=== PATIENT | male | born 1970 | race Caucasian/White ===

== ENCOUNTER 2016-10-24 17:03 | Observation (INO) | payer OTHER ==
[2016-10-24 17:19] VITALS: BMI 38.4
[2016-10-24] MEDS ORDERED: Sodium Chloride 0.9% 1,000 ML IV STA (17:24)
--- NOTE | 2016-10-24 17:30 | ED PDOC ---
Arrival/HPI - General Time Seen by Provider: 10/24/16 17:08 Historian: Patient - History of Present Illness Narrative History of Present Illness (Text): 10/24/16 17:10 A 45 year old male, whose past medical history includes Non-Insulin Dependent Diabetes and Hypertension, presents to the emergency department complaining of "not feeling well" for the past 3 days. Patient reports three days ago he woke up with a "cold, messed up feeling" in his stomach. He notes a decrease PO intake, no bowel movement and decrease urinary output (which is darker than usual) for the past 3 days. Patient has had a intermittent headache which has worsen within the fast few hours. He also developed a non productive cough about 5 hours ago. Patient says yesterday he went to work but all day he felt dizzy/lightheaded and was "felt as he was coming in and out of consciousness." Patient is feeling nausea at this time but denies any fever, vomiting or other complaints. Patient mentions last week he has an abscess to the abdomen, which his PMD performed a I&D and has tested. Fluids was positive for MRSA. Patient went to his PMD office yesterday but did not get any blood work because he did not want to stay in the office, but he was told by PMD he is dehydrated. PMD: Dr. Amezcua Time/Duration: Other (3 days ) Symptom Onset: Sudden Symptom Course: Unchanged Quality: Other Activities at Onset: Rest Context: Home Past Medical History - Provider Review Nursing Documentation Reviewed: Yes - Infectious Disease Hx of Infectious Diseases: None - Cardiac Hx Hypertension: Yes - Pulmonary Hx Respiratory Disorders: No - Neurological Hx Neurological Disorder: No - HEENT Hx HEENT Disorder: No - Renal Hx Renal Disorder: No - Endocrine/Metabolic Hx Diabetes Mellitus Type 2: Yes - Hematological/Oncological Hx Blood Disorders: No - Integumentary Hx Dermatological Disorder: No - Musculoskeletal/Rheumatological Hx Gout: Yes - Gastrointestinal Hx Gastrointestinal Disorders: No - Genitourinary/Gynecological Hx Genitourinary Disorders: No - Psychiatric Hx Psychophysiologic Disorder: No Hx Substance Use: No - Surgical History Other/Comment: spine surgery - Anesthesia Hx Anesthesia: Yes Hx Anesthesia Reactions: No Hx Malignant Hyperthermia: No Family/Social History - Physician Review Nursing Documentation Reviewed: Yes Family/Social History: Unknown Family HX Smoking Status: Current Some Days Smoker Hx Alcohol Use: Yes Hx Substance Use: No Allergies/Home Meds Allergies/Adverse Reactions: Allergies shellfish derived Allergy (Verified 04/03/16 00:20) RASH Home Medications: Home Meds Medication Instructions Recorded Confirmed GlipiZIDE [Glucotrol] 5 mg PO DAILY 12/28/15 12/28/15 MetFORMIN [glucoPHAGE] 1,000 mg PO DAILY 12/28/15 12/28/15 Metoprolol Succinate [Toprol XL] 50 mg PO DAILY 12/28/15 12/28/15 Review of Systems - Review of Systems Constitutional: Fatigue. absent: Fevers Respiratory: SOB, Cough. absent: Wheezing Cardiovascular: Chest Pain Gastrointestinal: Abdominal Pain, Nausea, Vomiting. absent: Diarrhea Genitourinary Male: Urinary Output Changes Musculoskeletal: Myalgias. absent: Back Pain Skin: absent: Rash Neurological: Headache, Dizziness. absent: Focal Weakness, Gait Changes Endocrine: absent: Polyuria Hemo/Lymphatic: absent: Easy Bleeding Physical Exam - Physical Exam Narrative Physical Exam (Text): Head: Atraumatic. Normocephalic. Eyes: PERRL. EOMI. Conjunctivae are not pale. No injection. ENT: Mucous membranes are moist and intact. No drooling or exudates. Oropharynx is clear and symmetric. Neck: Supple. Full ROM. No JVD. No lymphadenopathy. No meningeal signs. Cardiovascular: Tachycardic, no pathologic murmurs. Pulmonary/Chest: No evidence of respiratory distress. Clear to auscultation bilaterally. No wheezing, rales or rhonchi. Abdominal: Soft and non-distended. Very MILD periumbilical pain, no RLQ pain, no RUQ pain, mild epigastric pain, no pulsatile masses, there is healing skin abscess to left abdominal wall with no fluctuance or drainage or blistering, no streaking. Back: No CVA tenderness. No midline tenderness. Extremities: No edema. No cyanosis. No clubbing. Full range of motion in all extremities. No calf tenderness. Skin: Skin is pale, diaphoretic. Mild erythema to left lower abdominal wall with no drainage or streaking or fluctuance. Neurological: Alert, awake, and oriented to person, place, time, and situation. Normal speech. No meningeal signs. No nuchal rigidity. Motor and sensory intact. Negative Kernig's negative Brudzinskis's sign. Psychiatric: Good eye contact. Normal interaction, affect, and behavior. 10/27/16 12:16 Vital Signs Reviewed: Yes Vital Signs Temp Pulse Resp BP Pulse Ox 10/24/16 21:44 93 H 16 114/60 95 10/24/16 19:42 98.4 F 97 H 16 134/70 98 10/24/16 17:10 98.2 F 76 18 131/85 99 Temperature: Afebrile Pulse: Tachycardic Appearance: Positive for: Uncomfortable Mental Status: Positive for: Alert and Oriented X 3 Finger Stick Blood Glucose: 144 Medical Decision Making ED Course and Treatment: 10/24/16 17:10 Impression: A 45 year old male with flu like symptoms. Differential Diagnosis include but are not limited to: Sepsis vs. Dehydration vs. Gastroenteritis vs. Viral Illness vs. Electrolyte Imbalance Plan: -- EKG -- Chest X-ray -- Labs -- Urinalysis -- Zofran and IV Fluids -- Reassess and disposition Prior Visits: Notes and results from previous visits were reviewed. The patient last presented to the emergency department on 04/03/16 for evaluation of a slight headache. Progress Notes: Patient on initial exam with minimal abdominal pain. He reports nausea exacerbated with eating, although abdomen currently soft and not distended. No melena or bleeding reported. He is smoker, diabetic, but denies family hx of cad. Initial EKG without acute st elevations, currently no chest pain but states intermittently with some nonexertional discomfort. Initial troponin unremarkable. WBC elevated, but afebrile. There is prior hx of abdominal wall abscess he had been taking Bactrim, this appears to be healing on exam. Lungs are clear on re-evaluation. No meningeal signs. On re-exam, he DENIES headache, no focal motor or sensory deficits noted. Will admit patient to telemetry observation for monitoring, hydration, serial exams. 10/24/16 18:51 Chest X-ray Impression: As read by me, shows no acute disease. 10/24/16 22:31 - Lab Interpretations Microbiology Results: Microbiology Results 10/24/16 20:30 Blood Blood Culture - Preliminary NO GROWTH AFTER 48 HOURS 10/24/16 19:45 Blood Blood Culture - Preliminary NO GROWTH AFTER 48 HOURS 10/24/16 19:44 Urine Urine Culture - Final No Growth (<1,000 CFU/ML) Lab Results: 10/24/16 17:55 10/24/16 17:55 Lab Results 10/24/16 19:44: Urine Color Yellow, Urine Appearance Clear, Urine pH 6.0, Ur Specific Leupp 1.020, Urine Protein Negative, Urine Glucose (UA) >=1000, Urine Ketones 40 H, Urine Blood Negative, Urine Nitrate Negative, Urine Bilirubin Small H, Urine Urobilinogen 2.0 H, Ur Leukocyte Esterase Negative 10/24/16 19:30: Influenza Typ A,B (EIA) Negative for flu a/b 10/24/16 17:55: Sodium 130 L, Chloride 96 L, Potassium 3.5 L, Carbon Dioxide 20 L, Anion Gap 18, BUN 8, Creatinine 1.0, Est GFR ( Amer) > 60, Est GFR ( Non-Af Amer) > 60, Random Glucose 151 H, Calcium 8.9, Total Bilirubin 1.6 H, AST 12 L, ALT 28, Alkaline Phosphatase 90, Lactate Dehydrogenase 323 L, Total Creatine Kinase 43, Troponin I < 0.01, Total Protein 7.4, Albumin 3.7, Globulin 3.8, Albumin/Globulin Ratio 1.0 L 10/24/16 17:55: pO2 35, VBG pH 7.36, VBG pCO2 37.0 L, VBG HCO3 20.9 L, VBG Total CO2 22.0, VBG O2 Sat (Calc) 72.9 H, VBG Base Excess -4.0 L, VBG Potassium 3.6, Sodium 130.0 L, Chloride 99.0, Glucose 156 H, Lactate 1.7, FiO2 21.0, Venous Blood Potassium 3.6 10/24/16 17:55: PT 12.8 H, INR 1.19 H, APTT 32.7 H 10/24/16 17:55: WBC 13.8 H D, RBC 5.35, Hgb 16.1, Hct 43.9, MCV 80.6, MCH 30.1, MCHC 37.4 H, RDW 13.1, Plt Count 237, MPV 9.4, Gran % 81.3 H, Lymph % (Auto) 10.0 L, [place] % (Auto) 5.2, Eos % (Auto) 3.4, Baso % (Auto) 0.1, Gran # 11.17 H, Lymph # 1.4, [place] # 0.7 H, Eos # 0.5, Baso # 0.02 I have reviewed the lab results: Yes - RAD Interpretation Radiology Orders: 10/24/16 18:07 CHEST PORTABLE [RAD] Stat - EKG Interpretation EKG Interpretation (Text): 10/24/16 22:10 EKG at 17:32 sinus tachycardia rate of 105, nonspecific st changes. Interpreted by ED Physician: Yes Type: 12 lead EKG - Medication Orders Current Medication Orders: Discontinued Medications Sodium Chloride (Sodium Chloride 0.9%) 1,000 mls @ 1,000 mls/hr IV .Q1H STA Stop: 10/24/16 18:23 Last Admin: 10/24/16 18:01 Dose: 1,000 mls/hr Sodium Chloride (Sodium Chloride 0.9%) 1,000 mls @ 150 mls/hr IV .Q6H40M TANYA Last Admin: 10/24/16 23:30 Dose: 150 mls/hr Insulin Human Regular (Humulin R Med) 0 units SC ACHS TANYA PRN Reason: Protocol Iohexol (Omnipaque 240 (50 Ml)) Confirm Administered Dose 50 ml .ROUTE .STK-MED ONE Stop: 10/24/16 22:56 Iohexol (Omnipaque 350 100 Ml) Confirm Administered Dose 350 mg .ROUTE .STK-MED ONE Stop: 10/25/16 02:43 Ondansetron HCl (Zofran Inj) 4 mg IVP ONCE ONE Stop: 10/24/16 17:25 Last Admin: 10/24/16 18:01 Dose: 4 mg Ondansetron HCl (Zofran Inj) 4 mg IVP Q6H PRN PRN Reason: Nausea/Vomiting Pantoprazole Sodium (Protonix Inj) 40 mg IVP DAILY TANYA Potassium Chloride (K-Dur 20 Meq Er Tab) 20 meq PO STAT STA Stop: 10/24/16 20:08 Last Admin: 10/24/16 20:35 Dose: 20 meq Trimethoprim/Sulfamethoxazole (Bactrim Ds Tab) 1 tab PO BID TANYA PRN Reason: Protocol Stop: 10/27/16 10:01 - Scribe Statement The provider has reviewed the documentation as recorded by the Maricarmen Car Provider Scribe Attestation: All medical record entries made by the Scribe were at my direction and personally dictated by me. I have reviewed the chart and agree that the record accurately reflects my personal performance of the history, physical exam, medical decision making, and the department course for this patient. I have also personally directed, reviewed, and agree with the discharge instructions and disposition. Disposition/Present on Arrival - Present on Arrival Any Indicators Present on Arrival: No History of DVT/PE: No History of Uncontrolled Diabetes: No Urinary Catheter: No History Surgical Site Infection Following: None - Disposition Have Diagnosis and Disposition been Completed?: Yes Diagnosis: Dehydration, Hyponatremia, Chest pain, Nausea, Weakness Disposition: HOSPITALIZED Disposition Time: 21:00 Patient Plan: Admission, Observation, Telemetry Condition: FAIR
[2016-10-24 18:01] LABS: ADD MANUAL DIFF? NO
[2016-10-24 18:07] LABS: BASO # 0.02 K/mm3 (0.0-2.0); BASO % 0.1 % (0.0-3.0); EOS # 0.5 (0.0-0.7); EOS % 3.4 % (1.5-5.0); GRAN # 11.17 (1.4-6.5); GRAN % 81.3 % (50.0-68.0); LYMPH # 1.4 (1.2-3.4); MEAN CELL VOLUME 80.6 fL (80.0-105.0); MEAN CORPUSCULAR HEMOGLOBIN 30.1 pg (25.0-35.0); MEAN CORPUSCULAR HGB CONC 37.4 g/dl (31.0-37.0); MEAN PLATELET VOLUME 9.4 fl (7.0-11.0); MONO # 0.7 (0.1-0.6); MONO % 5.2 % (1.0-6.0); PLATELET COUNT 237 10^3/uL (120.0-450.0); RED CELL DISTRIBUTION WIDTH 13.1 % (11.5-14.5); WHITE BLOOD COUNT 13.8 10^3/ul (4.5-11.0)
[2016-10-24 18:16] LABS: INR 1.19 (0.93-1.08); PARTIAL THROMBOPLASTIN TIME 32.7 Seconds (23.7-30.8)
[2016-10-24 18:17] LABS: ALKALINE PHOSPHATASE 90 U/L (38-133); ALT/SGPT 28 U/L (7-56); AST/SGOT 12 U/L (15-59); BILIRUBIN,TOTAL 1.6 mg/dL (0.2-1.3); BLOOD UREA NITROGEN 8 mg/dL (7-21); CALCIUM 8.9 mg/dL (8.4-10.5); CARBON DIOXIDE 20 mmol/L (21-33); CHLORIDE 96 mmol/L (98-107); GFR AFRICAN-AMERICAN > 60; GLUCOSE,RANDOM 151 mg/dL (70-110); POTASSIUM 3.5 mmol/L (3.6-5.0); SODIUM 130 mmol/L (132-148); TOTAL PROTEIN 7.4 g/dL (5.8-8.3)
[2016-10-24 18:18] LABS: VENOUS BLOOD PH 7.36 (7.32-7.43)
[2016-10-24 18:30] LABS: TROPONIN I < 0.01 ng/mL
[2016-10-24 18:42] LABS: HEMATOCRIT 43.9 % (42.0-52.0)
[2016-10-24] MEDS ORDERED: Potassium Chloride 20 mEq ER Tab PO STA (20:07)
[2016-10-24 20:24] LABS: URINE BILIRUBIN SMALL (NEGATIVE); URINE BLOOD NEGATIVE (NEGATIVE); URINE GLUCOSE (UA) >=1000 mg/dL (NEGATIVE); URINE KETONE 40 mg/dL (NEGATIVE); URINE LEUKOCYTE ESTERASE NEGATIVE Leu/uL (NEGATIVE); URINE PROTEIN NEGATIVE mg/dL (<30 mg/dL)
[2016-10-24 20:28] LABS: URINE APPEARANCE CLEAR (CLEAR); URINE COLOR YELLOW (YELLOW)
--- NOTE | 2016-10-24 22:17 | CP.PCM.HP ---
History of Present Illness - History of Present Illness History of Present Illness: CC: "Not feeling well" HPI: Pt is a 45 year old male with a PMHx of HTN, Diabetes Mellitus, Hypercholesterolemia who presents to the ED with a 3 day history of generalized weakness and malaise. Pt reports that he has had a decreased appetite and has not been able to eat or drink much. Pt is also complaining of abdominal pain that has been going on for the past 3 days. Pt reports that he had a MRSA skin infection a week and a half ago on the lateral aspect of his abdomen and went to his doctor's office where it was drained, and he was given bactrim for it. He reports that he has 2 days left of bactrim for his course of antibiotics. Pt denies sick contacts. Pt also reports that he has been getting intermittent chest discomfort. Pt reports that he has not had a bowel movement in 2 days. He reports a slight, productive cough. He also reports that he feels slight dizzy at times. Pt denies fever, chills, shortness of breath, nausea, vomiting, diarrhea, dysuria. PMD: Dr. Amezcua PMHx: HTN, Diabetes Mellitus, Hypercholesterolemia Home Medications: cannot recall home medications, reports that his metformin was replaced recent by another medication, and he takes medication for HTN and hypercholesterolemia Allergies: Shellfish Past Surgical Hx: reports he has 2 rods placed in back secondary to disc herniations Social Hx: reports smoking half a pack of cigarettes/day, denies alcohol use, denies illicit drug use Family Hx: Diabetes Mellitus, Colon Cancer (father) Present on Admission - Present on Admission Any Indicators Present on Admission: Yes History of Uncontrolled Diabetes: Yes Review of Systems - Constitutional Constitutional: Weakness. absent: Chills, Fever - EENT Eyes: absent: Blurred Vision Ears: Dizziness. absent: Decreased Hearing Nose/Mouth/Throat: Nasal Congestion. absent: Epistaxis - Cardiovascular Cardiovascular: Chest Pain. absent: Dyspnea - Respiratory Respiratory: Cough. absent: Dyspnea, Hemoptysis, Dyspnea on Exertion, Wheezing - Gastrointestinal Gastrointestinal: Abdominal Pain, Constipation. absent: Nausea, Vomiting - Genitourinary Genitourinary: absent: Dysuria - Musculoskeletal Musculoskeletal: absent: Atrophy, Back Pain - Neurological Neurological: Dizziness, Weakness. absent: Abnormal Gait, Headaches - Psychiatric Psychiatric: absent: Confusion - Hematologic/Lymphatic Hematologic: absent: Easy Bleeding Past Patient History - Infectious Disease Hx of Infectious Diseases: None - Past Social History Smoking Status: Current Some Days Smoker - CARDIAC Hx Hypertension: Yes - PULMONARY Hx Respiratory Disorders: No - NEUROLOGICAL Hx Neurological Disorder: No - HEENT Hx HEENT Problems: No - RENAL Hx Chronic Kidney Disease: No - ENDOCRINE/METABOLIC Hx Diabetes Mellitus Type 2: Yes - HEMATOLOGICAL/ONCOLOGICAL Hx Blood Disorders: No - INTEGUMENTARY Hx Dermatological Problems: No - MUSCULOSKELETAL/RHEUMATOLOGICAL Hx Gout: Yes - GASTROINTESTINAL Hx Gastrointestinal Disorders: No - GENITOURINARY/GYNECOLOGICAL Hx Genitourinary Disorders: No - PSYCHIATRIC Hx Psychophysiologic Disorder: No Hx Substance Use: No - SURGICAL HISTORY Other/Comment: spine surgery - ANESTHESIA Hx Anesthesia: Yes Hx Anesthesia Reactions: No Hx Malignant Hyperthermia: No Meds Allergies/Adverse Reactions: Allergies Allergy/AdvReac Type Severity Reaction Status Date / Time shellfish derived Allergy RASH Verified 04/03/16 00:20 Physical Exam - Constitutional Appears: Toxic, No Acute Distress, Unkempt - Head Exam Head Exam: ATRAUMATIC, NORMOCEPHALIC - Eye Exam Eye Exam: EOMI, PERRL Pupil Exam: PERRL - Neck Exam Neck exam: Positive for: Normal Inspection - Respiratory Exam Respiratory Exam: Clear to Auscultation Bilateral. absent: Rhonchi, Wheezes - Cardiovascular Exam Cardiovascular Exam: +S1, +S2. absent: Gallop, Rubs - GI/Abdominal Exam GI & Abdominal Exam: Normal Bowel Sounds, Soft, Tenderness Additional comments: RUQ tenderness - Neurological Exam Neurological exam: Alert, Oriented x3 - Psychiatric Exam Psychiatric exam: Normal Affect, Normal Mood - Skin Skin Exam: Normal Color, Warm Results - Vital Signs Recent Vital Signs: Last Vital Signs Temp 98.4 F 10/24/16 19:42 Pulse 93 H 10/24/16 21:44 Resp 16 10/24/16 21:44 BP 114/60 10/24/16 21:44 Pulse Ox 95 10/24/16 21:44 - Labs Result Diagrams: 10/24/16 17:55 10/24/16 17:55 Assessment & Plan - Assessment and Plan (Free Text) Assessment: Leukocytosis: Bacteremia from previous MRSA infection vs. bactrim reaction vs enteritis vs ketosis WBC - 13.8 Pt afebrile, HR- 93 Lactate -1.7 CXR - pending official read Procalcitonin pending ESR pending Abd/pelvis CT with IV and PO contrast pending Chest Discomfort: Troponins negative x 1 Serial cardiac enzymes pending EKG - sinus tachycardia, no ST elevations (please see full report) Repeat EKG in the am pending RUQ Tenderness: Abd/pelvis CT with IV and PO contrast pending Total bilirubin - 1.6 Diabetes Mellitus: Random glucose - 151 Urine ketones - 40 H Bicarb - 20 L Insulin sliding scale Accuchecks HgbA1c pending HTN: BP currently 116/80 Continue to monitor Hypercholesterolemia: Lipid panel pending Prophylactic Measures: DVT: SCDs, Heparin 5000 units sc q8h GI: Protonix 40 mg IV qd NS IVF 150 cc/hr Zofran 4 mg Iv q6h prn for nausea
[2016-10-24] MEDS ORDERED: Sodium Chloride 0.9% 1,000 ML IV SCH (22:30)
[2016-10-24] MEDS ORDERED: Iohexol 240 (50 ml) ONE (22:55)
[2016-10-24 23:59] VITALS: BP 117/72; PULSE 101; RESP 20; TEMP 98.2; O2SAT 96
[2016-10-25 01:19] LABS: TROPONIN I < 0.01 ng/mL
[2016-10-25] MEDS ORDERED: Iohexol 350 MG/100 ML VIAL ONE (02:42)
[2016-10-25 07:23] LABS: ADD MANUAL DIFF? NO
[2016-10-25] MEDS ORDERED: Insulin Reg-MEDIUM-Coverage SC SCH (07:30)
[2016-10-25 07:37] LABS: BASO # 0.04 K/mm3 (0.0-2.0); BASO % 0.3 % (0.0-3.0); EOS # 0.8 (0.0-0.7); GRAN # 10.05 (1.4-6.5); GRAN % 73.7 % (50.0-68.0); HEMATOCRIT 44.3 % (42.0-52.0); LYMPH % 14.9 % (22.0-35.0); MEAN CELL VOLUME 81.1 fL (80.0-105.0); MEAN CORPUSCULAR HEMOGLOBIN 29.5 pg (25.0-35.0); MEAN CORPUSCULAR HGB CONC 36.3 g/dl (31.0-37.0); MEAN PLATELET VOLUME 9.4 fl (7.0-11.0); MONO # 0.7 (0.1-0.6); MONO % 5.1 % (1.0-6.0); PLATELET COUNT 241 10^3/uL (120.0-450.0); RED CELL DISTRIBUTION WIDTH 13.4 % (11.5-14.5); WHITE BLOOD COUNT 13.6 10^3/ul (4.5-11.0)
--- NOTE | 2016-10-25 07:45 | CT ---
PROCEDURE: CT Abdomen and Pelvis without IV contrast. HISTORY: RUQ tenderness COMPARISON: None available TECHNIQUE: Contiguous axial images of the abdomen and pelvis. Oral contrast was administered. No IV contrast given. Coronal and Sagittal reformats generated. Radiation dose: Total exam DLP = 1364.09 mGy-cm. This CT exam was performed using one or more of the following dose reduction techniques: Automated exposure control, adjustment of the mA and/or kV according to patient size, and/or use of iterative reconstruction technique. FINDINGS: There is limited evaluation of the solid organs without the administration of IV contrast. LOWER THORAX: No visible consolidation, pleural effusion, pneumothorax. Partially imaged coronary artery calcifications. Partially imaged small pericardial fluid. LIVER: Hepatomegaly. Hypoattenuation of the liver compatible with hepatic steatosis. Punctate hepatic dome calcification, likely granuloma. GALLBLADDER AND BILE DUCTS: Unremarkable. PANCREAS: Unremarkable. SPLEEN: Unremarkable. ADRENALS: Unremarkable. KIDNEYS AND URETERS: No hydronephrosis or obstructing renal calculus. BLADDER: The urinary bladder appears unremarkable. REPRODUCTIVE: The prostate gland measures approximately 3.6 x 4.5 cm APPENDIX: The appendix appears within normal limits of caliber. No secondary signs of acute appendicitis. BOWEL: The stomach is nondistended. The bowel loops appear within normal limits of caliber without evidence of intestinal obstruction. PERITONEUM: No significant free fluid. No definite free air. LYMPH NODES: No bulky lymphadenopathy identified. VASCULATURE: No aortic aneurysm. BONES: Posterior lumbar fusion involving L4 through S1. Chronic degenerative changes of the spine. OTHER FINDINGS: None. IMPRESSION: Hepatomegaly. Hepatic steatosis. Partially imaged small pericardial fluid. Preliminary impression was provided by virtual radiologic.
[2016-10-25 07:56] LABS: ALKALINE PHOSPHATASE 94 U/L (38-133); ALT/SGPT 29 U/L (7-56); AST/SGOT 16 U/L (15-59); BILIRUBIN,TOTAL 1.4 mg/dL (0.2-1.3); BLOOD UREA NITROGEN 8 mg/dL (7-21); CARBON DIOXIDE 23 mmol/L (21-33); CHLORIDE 97 mmol/L (98-107); GFR AFRICAN-AMERICAN > 60; GLUCOSE,RANDOM 98 mg/dL (70-110); MAGNESIUM 2.2 mg/dL (1.7-2.2); PHOSPHOROUS 2.9 mg/dL (2.5-4.5); POTASSIUM 4.3 mmol/L (3.6-5.0); SODIUM 136 mmol/L (132-148); TOTAL PROTEIN 7.5 g/dL (5.8-8.3)
[2016-10-25 07:58] LABS: TROPONIN I 0.02 ng/mL
--- NOTE | 2016-10-25 08:08 | CP.PCM.PN ---
Subjective - Date & Time of Evaluation Date of Evaluation: 10/25/16 - Subjective Subjective: Hospitalist progress note for Dr. Galloway Objective - Vital Signs/Intake and Output Vital Signs (last 24 hours): Temp Pulse Resp BP Pulse Ox 98.2 F 101 H 20 117/72 96 10/24/16 23:35 10/24/16 23:35 10/24/16 23:35 10/24/16 23:35 10/24/16 23:35 Intake and Output: 10/25/16 10/25/16 06:59 18:59 Intake Total 420 825 Balance 420 825 - Medications Medications: Current Medications Sodium Chloride (Sodium Chloride 0.9%) 1,000 mls @ 150 mls/hr IV .Q6H40M TANYA Last Admin: 10/24/16 23:30 Dose: 150 mls/hr Insulin Human Regular (Humulin R Med) 0 units SC ACHS TANYA PRN Reason: Protocol Ondansetron HCl (Zofran Inj) 4 mg IVP Q6H PRN PRN Reason: Nausea/Vomiting Pantoprazole Sodium (Protonix Inj) 40 mg IVP DAILY [facility] Trimethoprim/Sulfamethoxazole (Bactrim Ds Tab) 1 tab PO BID TANYA PRN Reason: Protocol Stop: 10/27/16 10:01 - Labs Labs: 10/25/16 06:30 10/25/16 06:30 PT 12.8 Seconds (9.9-11.8) H 10/24/16 17:55 INR 1.19 (0.93-1.08) H 10/24/16 17:55 APTT 32.7 Seconds (23.7-30.8) H 10/24/16 17:55
--- NOTE | 2016-10-25 08:49 | RAD ---
HISTORY: chest pain, sob COMPARISON: Chest x-ray performed 04/03/16 TECHNIQUE: Chest, one view. FINDINGS: Examination limited by habitus, hypoinflation, and patient obliquity. LUNGS: Mild patchy right perihilar opacity may reflect pneumonia or atelectasis. Please note that chest x-ray has limited sensitivity for the detection of pulmonary masses. PLEURA: No significant pleural effusion identified. No definite pneumothorax . CARDIOVASCULAR: Heart size appears within normal limits. OSSEOUS STRUCTURES: Degenerative changes. VISUALIZED UPPER ABDOMEN: Unremarkable. OTHER FINDINGS: None. IMPRESSION: Mild patchy right perihilar opacity may reflect pneumonia or atelectasis. Correlate clinically. Study has been marked for PA review.
--- NOTE | 2016-10-25 09:13 | CARD ---
APPROVED REPORT EKG Measurement Heart [id number] <Conclusion> Sinus tachycardia ST T changes Lat lead, corelate clinically. Abnormal ECG
[2016-10-25 09:22] LABS: ERYTHROCYTE SEDIMENTATION RATE 9 mm/hr (0.0-15.0)
[2016-10-25] MEDS ORDERED: Tmp-Smz 800 mg-160 mg DS Tab PO SCH (10:00)
--- NOTE | 2016-10-25 11:18 | CP.PCM.DIS ---
<Misa Calvillo - Last Filed: 10/25/16 15:09> Provider - Provider Date of Admission: 10/24/16 20:59 Attending physician: Claritza Ling MD Time Spent in preparation of Discharge (in minutes): 10 Diagnosis - Discharge Diagnosis (1) Abdominal pain Status: Acute Priority: High (2) MRSA (methicillin resistant Staphylococcus aureus) infection Status: Acute (3) Weakness Status: Acute (4) Tachycardia Status: Acute (5) Abscess of skin of abdomen Status: Acute (6) Diabetes mellitus type 2 in obese Status: Chronic (7) HTN (hypertension) Status: Chronic Hospital Course - Lab Results Lab Results: Most Recent Lab Values WBC 13.6 10^3/ul (4.5-11.0) H 10/25/16 06:30 RBC 5.46 10^6/uL (3.5-6.1) 10/25/16 06:30 Hgb 16.1 gm/dL (14.0-18.0) 10/25/16 06:30 Hct 44.3 % (42.0-52.0) 10/25/16 06:30 MCV 81.1 fL (80.0-105.0) 10/25/16 06:30 MCH 29.5 pg (25.0-35.0) 10/25/16 06:30 MCHC 36.3 g/dl (31.0-37.0) 10/25/16 06:30 RDW 13.4 % (11.5-14.5) 10/25/16 06:30 Plt Count 241 10^3/uL (120.0-450.0) 10/25/16 06:30 MPV 9.4 fl (7.0-11.0) 10/25/16 06:30 Gran % 73.7 % (50.0-68.0) H 10/25/16 06:30 Lymph % (Auto) 14.9 % (22.0-35.0) L 10/25/16 06:30 [place] % (Auto) 5.1 % (1.0-6.0) 10/25/16 06:30 Eos % (Auto) 6.0 % (1.5-5.0) H 10/25/16 06:30 Baso % (Auto) 0.3 % (0.0-3.0) 10/25/16 06:30 Gran # 10.05 (1.4-6.5) H 10/25/16 06:30 Lymph # 2.0 (1.2-3.4) 10/25/16 06:30 [place] # 0.7 (0.1-0.6) H 10/25/16 06:30 Eos # 0.8 (0.0-0.7) H 10/25/16 06:30 Baso # 0.04 K/mm3 (0.0-2.0) 10/25/16 06:30 ESR 9 mm/hr (0.0-15.0) 10/25/16 06:30 PT 12.8 Seconds (9.9-11.8) H 10/24/16 17:55 INR 1.19 (0.93-1.08) H 10/24/16 17:55 APTT 32.7 Seconds (23.7-30.8) H 10/24/16 17:55 pO2 35 mm/Hg (30-55) 10/24/16 17:55 VBG pH 7.36 (7.32-7.43) 10/24/16 17:55 VBG pCO2 37.0 (40-60) L 10/24/16 17:55 VBG HCO3 20.9 mmol/l (21-28) L 10/24/16 17:55 VBG Total CO2 22.0 mmol.L (22-28) 10/24/16 17:55 VBG O2 Sat (Calc) 72.9 % (40-65) H 10/24/16 17:55 VBG Base Excess -4.0 mmol/L (0.0-2.0) L 10/24/16 17:55 VBG Potassium 3.6 mmol/L (3.6-5.2) 10/24/16 17:55 Sodium 130.0 mmol/L (132-148) L 10/24/16 17:55 Chloride 99.0 mmol/L (98-107) 10/24/16 17:55 Glucose 156 mg/dl (75-110) H 10/24/16 17:55 Lactate 1.7 mmol/L (0.7-2.1) 10/24/16 17:55 FiO2 21.0 % 10/24/16 17:55 Sodium 136 mmol/L (132-148) 10/25/16 06:30 Potassium 4.3 mmol/L (3.6-5.0) 10/25/16 06:30 Chloride 97 mmol/L (98-107) L 10/25/16 06:30 Carbon Dioxide 23 mmol/L (21-33) 10/25/16 06:30 Anion Gap 20 (10-20) 10/25/16 06:30 BUN 8 mg/dL (7-21) 10/25/16 06:30 Creatinine 1.0 mg/dL (0.5-1.4) 10/25/16 06:30 Est GFR ( Amer) > 60 10/25/16 06:30 Est GFR (Non-Af Amer) > 60 10/25/16 06:30 POC Glucose (mg/dL) 129 mg/dL (65-110) H 10/25/16 08:57 Random Glucose 98 mg/dL (70-110) 10/25/16 06:30 Hemoglobin A1c 7.0 % (4.2-6.5) H 10/25/16 06:30 Calcium 9.0 mg/dL (8.4-10.5) 10/25/16 06:30 Phosphorus 2.9 mg/dL (2.5-4.5) 10/25/16 06:30 Magnesium 2.2 mg/dL (1.7-2.2) 10/25/16 06:30 Total Bilirubin 1.4 mg/dL (0.2-1.3) H 10/25/16 06:30 AST 16 U/L (15-59) 10/25/16 06:30 ALT 29 U/L (7-56) 10/25/16 06:30 Alkaline Phosphatase 94 U/L (38-133) 10/25/16 06:30 Lactate Dehydrogenase 383 U/L (333-699) 10/25/16 06:30 Total Creatine Kinase 49 U/L (35-230) 10/25/16 06:30 Troponin I 0.02 ng/mL D 10/25/16 06:30 Total Protein 7.5 g/dL (5.8-8.3) 10/25/16 06:30 Albumin 3.8 g/dL (3.0-4.8) 10/25/16 06:30 Globulin 3.7 gm/dL 10/25/16 06:30 Albumin/Globulin Ratio 1.0 (1.1-1.8) L 10/25/16 06:30 Venous Blood Potassium 3.6 mmol/L (3.6-5.2) 10/24/16 17:55 Urine Color Yellow (YELLOW) 10/24/16 19:44 Urine Appearance Clear (CLEAR) 10/24/16 19:44 Urine pH 6.0 (4.7-8.0) 10/24/16 19:44 Ur Specific [place] 1.020 (1.005-1.035) 10/24/16 19:44 Urine Protein Negative mg/dL (<30 mg/dL) 10/24/16 19:44 Urine Glucose (UA) >=1000 mg/dL (NEGATIVE) 10/24/16 19:44 Urine Ketones 40 mg/dL (NEGATIVE) H 10/24/16 19:44 Urine Blood Negative (NEGATIVE) 10/24/16 19:44 Urine Nitrate Negative (NEGATIVE) 10/24/16 19:44 Urine Bilirubin Small (NEGATIVE) H 10/24/16 19:44 Urine Urobilinogen 2.0 E.U./dL (<1 E.U./dL) H 10/24/16 19:44 Ur Leukocyte Esterase Negative Pebbles/uL (NEGATIVE) 10/24/16 19:44 Urine Opiates Screen Negative (NEGATIVE) 10/24/16 22:23 Urine Methadone Screen Negative (NEGATIVE) 10/24/16 22:23 Ur Barbiturates Screen Negative (NEGATIVE) 10/24/16 22:23 Ur Phencyclidine Scrn Negative (NEGATIVE) 10/24/16 22:23 Ur Amphetamines Screen Negative (NEGATIVE) 10/24/16 22:23 U Benzodiazepines Scrn Negative (NEGATIVE) 10/24/16 22:23 U Oth Cocaine Metabols Negative (NEGATIVE) 10/24/16 22:23 U Cannabinoids Screen Negative (NEGATIVE) 10/24/16 22:23 Influenza Typ A,B (EIA) Negative for flu a/b (NEGATIVE) 10/24/16 19:30 - Hospital Course Hospital Course: Pt is a 45 year old obese male with a PMHx of HTN, Diabetes Mellitus, Hypercholesterolemia who presented to the ED with a 3 day history of generalized weakness, malaise, intermittent chest discomfort, abdominal pain, decreased appetite and food/water intake, as well as 2 days of constipation. Pt had a MRSA skin infection on the lateral aspect of his abdomen a week and a half ago, which was drained in his doctor's office, and for which he had been taking bactrim. Pt reports that he has not had a bowel movement in 2 days. Patient was afebrile, with normal vitals. WBC was 13.8, total bilirubin was mildy elevated at 1.6, EKG showed sinus tachycardia and lateral ST-T changes, CXR showed mild patchy R perihilar opacity: pneumonia vs. atelectasis, CT Abd and Pelvis with PO contrast showed hepatomegaly and hepatic steatosis, but no other pathology. Patient was admitted to the telemetry floor to rule out ACS and further evaluation of leukocytosis and abdominal pain. Patient's trops were negativex3, and leukocytosis and hyperbilirubinemia were trending down overnight. Per nursing, patient refused to wear a autos disassembler or SCD's or take any medications, and ripped his IV out in order to go to the bathroom. Patient was found missing from his room the morning after admit, having eloped before clinical re-evaluation by the primary team or GI evaluation was performed. For full hospital course, please refer to the chart. Discharge Exam - Additional Findings Additional findings: D/C examination was not possible d/t patient elopement. Discharge Plan - Follow Up Plan Condition: FAIR Disposition: ELOPED FROM NURSING UNIT Instructions: Chest Pain (ED), Weakness (ED) <Nilesh MORIN,Jose Cruz - Last Filed: 10/25/16 15:29> Provider - Provider Date of Admission: 10/24/16 20:59 Attending physician: Jose Cruz Galloway MD Hospital Course - Lab Results Lab Results: Most Recent Lab Values WBC 13.6 10^3/ul (4.5-11.0) H 10/25/16 06:30 RBC 5.46 10^6/uL (3.5-6.1) 10/25/16 06:30 Hgb 16.1 gm/dL (14.0-18.0) 10/25/16 06:30 Hct 44.3 % (42.0-52.0) 10/25/16 06:30 MCV 81.1 fL (80.0-105.0) 10/25/16 06:30 MCH 29.5 pg (25.0-35.0) 10/25/16 06:30 MCHC 36.3 g/dl (31.0-37.0) 10/25/16 06:30 RDW 13.4 % (11.5-14.5) 10/25/16 06:30 Plt Count 241 10^3/uL (120.0-450.0) 10/25/16 06:30 MPV 9.4 fl (7.0-11.0) 10/25/16 06:30 Gran % 73.7 % (50.0-68.0) H 10/25/16 06:30 Lymph % (Auto) 14.9 % (22.0-35.0) L 10/25/16 06:30 [place] % (Auto) 5.1 % (1.0-6.0) 10/25/16 06:30 Eos % (Auto) 6.0 % (1.5-5.0) H 10/25/16 06:30 Baso % (Auto) 0.3 % (0.0-3.0) 10/25/16 06:30 Gran # 10.05 (1.4-6.5) H 10/25/16 06:30 Lymph # 2.0 (1.2-3.4) 10/25/16 06:30 [place] # 0.7 (0.1-0.6) H 10/25/16 06:30 Eos # 0.8 (0.0-0.7) H 10/25/16 06:30 Baso # 0.04 K/mm3 (0.0-2.0) 10/25/16 06:30 ESR 9 mm/hr (0.0-15.0) 10/25/16 06:30 PT 12.8 Seconds (9.9-11.8) H 10/24/16 17:55 INR 1.19 (0.93-1.08) H 10/24/16 17:55 APTT 32.7 Seconds (23.7-30.8) H 10/24/16 17:55 pO2 35 mm/Hg (30-55) 10/24/16 17:55 VBG pH 7.36 (7.32-7.43) 10/24/16 17:55 VBG pCO2 37.0 (40-60) L 10/24/16 17:55 VBG HCO3 20.9 mmol/l (21-28) L 10/24/16 17:55 VBG Total CO2 22.0 mmol.L (22-28) 10/24/16 17:55 VBG O2 Sat (Calc) 72.9 % (40-65) H 10/24/16 17:55 VBG Base Excess -4.0 mmol/L (0.0-2.0) L 10/24/16 17:55 VBG Potassium 3.6 mmol/L (3.6-5.2) 10/24/16 17:55 Sodium 130.0 mmol/L (132-148) L 10/24/16 17:55 Chloride 99.0 mmol/L (98-107) 10/24/16 17:55 Glucose 156 mg/dl (75-110) H 10/24/16 17:55 Lactate 1.7 mmol/L (0.7-2.1) 10/24/16 17:55 FiO2 21.0 % 10/24/16 17:55 Sodium 136 mmol/L (132-148) 10/25/16 06:30 Potassium 4.3 mmol/L (3.6-5.0) 10/25/16 06:30 Chloride 97 mmol/L (98-107) L 10/25/16 06:30 Carbon Dioxide 23 mmol/L (21-33) 10/25/16 06:30 Anion Gap 20 (10-20) 10/25/16 06:30 BUN 8 mg/dL (7-21) 10/25/16 06:30 Creatinine 1.0 mg/dL (0.5-1.4) 10/25/16 06:30 Est GFR ( Amer) > 60 10/25/16 06:30 Est GFR (Non-Af Amer) > 60 10/25/16 06:30 POC Glucose (mg/dL) 129 mg/dL (65-110) H 10/25/16 08:57 Random Glucose 98 mg/dL (70-110) 10/25/16 06:30 Hemoglobin A1c 7.0 % (4.2-6.5) H 10/25/16 06:30 Calcium 9.0 mg/dL (8.4-10.5) 10/25/16 06:30 Phosphorus 2.9 mg/dL (2.5-4.5) 10/25/16 06:30 Magnesium 2.2 mg/dL (1.7-2.2) 10/25/16 06:30 Total Bilirubin 1.4 mg/dL (0.2-1.3) H 10/25/16 06:30 AST 16 U/L (15-59) 10/25/16 06:30 ALT 29 U/L (7-56) 10/25/16 06:30 Alkaline Phosphatase 94 U/L (38-133) 10/25/16 06:30 Lactate Dehydrogenase 383 U/L (333-699) 10/25/16 06:30 Total Creatine Kinase 49 U/L (35-230) 10/25/16 06:30 Troponin I 0.02 ng/mL D 10/25/16 06:30 C-React Prot High Sens > 15.00 mg/L (1.00-3.00) H 10/24/16 23:00 Total Protein 7.5 g/dL (5.8-8.3) 10/25/16 06:30 Albumin 3.8 g/dL (3.0-4.8) 10/25/16 06:30 Globulin 3.7 gm/dL 10/25/16 06:30 Albumin/Globulin Ratio 1.0 (1.1-1.8) L 10/25/16 06:30 Procalcitonin 0.14 NG/ML (0.19-0.49) L 10/24/16 23:24 Venous Blood Potassium 3.6 mmol/L (3.6-5.2) 10/24/16 17:55 Urine Color Yellow (YELLOW) 10/24/16 19:44 Urine Appearance Clear (CLEAR) 10/24/16 19:44 Urine pH 6.0 (4.7-8.0) 10/24/16 19:44 Ur Specific [place] 1.020 (1.005-1.035) 10/24/16 19:44 Urine Protein Negative mg/dL (<30 mg/dL) 10/24/16 19:44 Urine Glucose (UA) >=1000 mg/dL (NEGATIVE) 10/24/16 19:44 Urine Ketones 40 mg/dL (NEGATIVE) H 10/24/16 19:44 Urine Blood Negative (NEGATIVE) 10/24/16 19:44 Urine Nitrate Negative (NEGATIVE) 10/24/16 19:44 Urine Bilirubin Small (NEGATIVE) H 10/24/16 19:44 Urine Urobilinogen 2.0 E.U./dL (<1 E.U./dL) H 10/24/16 19:44 Ur Leukocyte Esterase Negative [place]/uL (NEGATIVE) 10/24/16 19:44 Urine Opiates Screen Negative (NEGATIVE) 10/24/16 22:23 Urine Methadone Screen Negative (NEGATIVE) 10/24/16 22:23 Ur Barbiturates Screen Negative (NEGATIVE) 10/24/16 22:23 Ur Phencyclidine Scrn Negative (NEGATIVE) 10/24/16 22:23 Ur Amphetamines Screen Negative (NEGATIVE) 10/24/16 22:23 U Benzodiazepines Scrn Negative (NEGATIVE) 10/24/16 22:23 U Oth Cocaine Metabols Negative (NEGATIVE) 10/24/16 22:23 U Cannabinoids Screen Negative (NEGATIVE) 10/24/16 22:23 Influenza Typ A,B (EIA) Negative for flu a/b (NEGATIVE) 10/24/16 19:30 Attending/Attestation - Attestation I have personally seen and examined this patient.: No I have fully participated in the care of the patient.: No I have reviewed all pertinent clinical information, including history, physical exam and plan: Yes Notes (Text): 10/25/16 15:29 Patient left the hospital without being seen by me.
--- NOTE | 2016-10-25 11:21 | CARD ---
APPROVED REPORT EKG Measurement Heart [id number] <Conclusion> Normal sinus rhythm Non Specific ST-T Changes.
== END 2016-10-25 09:30 | disposition left against medical advice (07) ==
LOC: ED 17:03 → ERH 20:59 → 2RNO 22:59
PROVIDERS: ADMIT Internal Medicine; ATTEND Internal Medicine
DX: E87.1 Hypo-osmolality and hyponatremia (principal); E86.0 Dehydration; R07.89 Other chest pain; R10.9 Unspecified abdominal pain; R00.0 Tachycardia, unspecified; E11.9 Type 2 diabetes mellitus without complications; E66.9 Obesity, unspecified; I10 Essential (primary) hypertension; K59.00 Constipation, unspecified; E78.00 Pure hypercholesterolemia, unspecified; L08.9 Local infection of the skin and subcutaneous tissue, unspecified; B95.62 Methicillin resistant Staphylococcus aureus infection as the cause of diseases classified elsewhere; F17.210 Nicotine dependence, cigarettes, uncomplicated; Z83.3 Family history of diabetes mellitus; Z80.0 Family history of malignant neoplasm of digestive organs; Z79.84 Long term (current) use of oral hypoglycemic drugs
CPT/HCPCS: 36415; 71010; 74176; 80053; 80324; 80345; 80346; 80349; 80353; 80358; 80361; 81003; 82550; 82803; 82948; 83036; 83615; 83735; 83992; 84100; 84145; 84484; 85025; 85610; 85651; 85730; 86140; 87040; 87086; 87804; 93005; 96374; 99285; G0378; J2405; J7040; Q9966; Q9967

== ENCOUNTER 2018-01-27 07:17 | Emergency (ER) | payer OTHER ==
[2018-01-27 07:18] VITALS: BMI 31.5
[2018-01-27 07:41] VITALS: RESP 18; TEMP 98
[2018-01-27 08:32] LABS: BASO # 0.03 K/mm3 (0.0-2.0); BASO % 0.2 % (0.0-3.0); EOS # 0.2 (0.0-0.7); EOS % 1.5 % (1.5-5.0); GRAN # 9.45 (1.4-6.5); GRAN % 69.1 % (50.0-68.0); HEMOGLOBIN 17.3 g/dL (14.0-18.0); LYMPH # 3.3 (1.2-3.4); LYMPH % 24.2 % (22.0-35.0); MEAN CELL VOLUME 81.2 fl (80.0-105.0); MEAN CORPUSCULAR HEMOGLOBIN 30.1 pg (25.0-35.0); MEAN PLATELET VOLUME 9.8 fl (7.0-11.0); MONO # 0.7 (0.1-0.6); RBC 5.75 10^6/uL (3.5-6.1); RED CELL DISTRIBUTION WIDTH 13.5 % (11.5-14.5); WHITE BLOOD COUNT 13.7 10^3/ul (4.5-11.0)
[2018-01-27 08:44] LABS: ALB/GLOB RATIO 1.3 (1.1-1.8); ALT/SGPT 29 U/L (7-56); AST/SGOT 21 U/L (17-59); BLOOD UREA NITROGEN 10 mg/dL (7-21); CALCIUM 9.7 mg/dL (8.4-10.5); GFR AFRICAN-AMERICAN > 60; GFR NON-AFRICAN AMERICAN > 60
--- NOTE | 2018-01-27 08:51 | ED PDOC ---
Arrival/HPI - General Chief Complaint: Back Pain Time Seen by Provider: 01/27/18 07:45 Historian: Patient - History of Present Illness Narrative History of Present Illness (Text): 01/27/18 08:48 Patient is a 47 year old male with PMH of lumbar disc herniation (s/p surgery, originally treated with PT and steroid injection), DM2, HTN, HLD, and MRSA skin infection who presents with back pain that started this morning. He describes the pain as a dull pain radiating to his stomach and groin. He states that he had similar pains about two years ago when he was first diagnosed with lumbar disc herniation. He states that he has also had trouble walking because the pain is so severe. Time/Duration: 1-3 hours Symptom Onset: Sudden Symptom Course: Intermittent, Worsening Quality: Aching, Gas Like Severity Level: 8 Activities at Onset: Rest Past Medical History - Provider Review Nursing Documentation Reviewed: Yes - Infectious Disease Hx of Infectious Diseases: None - Cardiac Hx Hypertension: Yes - Pulmonary Hx Respiratory Disorders: No - Neurological Hx Neurological Disorder: No - HEENT Hx HEENT Disorder: No - Renal Hx Renal Disorder: No - Endocrine/Metabolic Hx Diabetes Mellitus Type 2: Yes - Hematological/Oncological Hx Blood Disorders: No - Integumentary Hx Dermatological Disorder: No - Musculoskeletal/Rheumatological Hx Back Pain: Yes Hx Gout: Yes - Gastrointestinal Hx Gastrointestinal Disorders: No - Genitourinary/Gynecological Hx Genitourinary Disorders: No - Psychiatric Hx Psychophysiologic Disorder: No Hx Substance Use: No - Surgical History Other/Comment: spine surgery - Anesthesia Hx Anesthesia: Yes Hx Anesthesia Reactions: No Hx Malignant Hyperthermia: No Family/Social History - Physician Review Nursing Documentation Reviewed: Yes Family/Social History: Diabetes Smoking Status: Current Some Days Smoker Hx Alcohol Use: Yes Hx Substance Use: No Allergies/Home Meds Allergies/Adverse Reactions: Allergies shellfish derived Allergy (Verified 01/27/18 07:43) RASH Review of Systems - Review of Systems Constitutional: absent: Fevers, Night Sweats Eyes: absent: Vision Changes ENT: absent: Hearing Changes, Sore Throat, Sinus Congestion Respiratory: absent: SOB, Cough Cardiovascular: absent: Chest Pain, Palpitations, WETZEL Gastrointestinal: Abdominal Pain. absent: Stool Changes, Diarrhea, Nausea, Vomiting Genitourinary Male: absent: Dysuria, Frequency, Urinary Output Changes Musculoskeletal: Back Pain. absent: Neck Pain Skin: absent: Rash, Pruritis Neurological: absent: Headache, Dizziness Psychiatric: absent: Anxiety, Depression Physical Exam Vital Signs Reviewed: Yes Vital Signs Temp Pulse Resp BP Pulse Ox 01/27/18 10:37 98 F 79 18 110/78 97 01/27/18 10:29 98 F 79 18 110/78 97 01/27/18 07:38 98 F 85 18 121/86 98 01/27/18 07:18 98 F 85 18 121/86 98 Temperature: Afebrile Blood Pressure: Normal Pulse: Regular Respiratory Rate: Normal Appearance: Positive for: Non-Toxic, Uncomfortable Pain Distress: Moderate Mental Status: Positive for: Alert and Oriented X 3 - Systems Exam Head: Present: Atraumatic, Normocephalic Pupils: Present: PERRL Extroacular Muscles: Present: EOMI Conjunctiva: Present: Normal Mouth: Present: Moist Mucous Membranes Pharnyx: No: ERYTHEMA, EXUDATE, TONSILS ENLARGED Respiratory/Chest: Present: Clear to Auscultation. No: Accessory Muscle Use, Wheezes, Rhonchi Cardiovascular: Present: Regular Rate and Rhythm, Normal S1, S2. No: Murmurs, Rub, Gallop Abdomen: Present: Tenderness. No: Distention, Peritoneal Signs Rectal: Present: Normal Rectal Tone Back: Present: Paraspinal Tenderness. No: CVA Tenderness, Pain with Leg Raise Upper Extremity: Present: Normal Inspection. No: Cyanosis, Edema Lower Extremity: Present: Normal Inspection. No: Edema, Cyanosis, Nasir's Sign Skin: Present: Warm, Dry Psychiatric: Present: Alert, Oriented x 3 Medical Decision Making ED Course and Treatment: 01/27/18 10:37 Mr. Avalos reports his pain has improved s/p tramadol. He also reports his indigestion symptoms have improved with mylanta and protonix. Xrays of the lumbar spine showed nothing acute. We discussed the results with him and he agreed to follow up with his primary care physician if the pain worsens or if he decides he needs a new spinal surgeon referral. - Lab Interpretations Lab Results: 01/27/18 08:20 01/27/18 08:20 Lab Results 01/27/18 08:20: Sodium 140, Potassium 3.9, Chloride 102, Carbon Dioxide 26, Anion Gap 15, BUN 10, Creatinine 0.8, Est GFR ( Amer) > 60, Est GFR (Non- Af Amer) > 60, Random Glucose 148 H, Calcium 9.7, Total Bilirubin 0.7, AST 21, ALT 29, Alkaline Phosphatase 74, Total Protein 7.2, Albumin 4.0, Globulin 3.2, Albumin/Globulin Ratio 1.3 01/27/18 08:20: WBC 13.7 H, RBC 5.75, Hgb 17.3, Hct 46.7, MCV 81.2, MCH 30.1, MCHC 37.0, RDW 13.5, Plt Count 203, MPV 9.8, Gran % 69.1 H, Lymph % (Auto) 24.2 , Power % (Auto) 5.0, Eos % (Auto) 1.5, Baso % (Auto) 0.2, Gran # 9.45 H, Lymph # (Auto) 3.3, Power # (Auto) 0.7 H, Eos # (Auto) 0.2, Baso # (Auto) 0.03 I have reviewed the lab results: Yes Interpretation: All labs normal - RAD Interpretation Radiology Orders: 01/27/18 08:29 LS SPINE AP/LAT [RAD] Stat Community Advocate: Radiologist - Medication Orders Current Medication Orders: Discontinued Medications Al Hydrox/Mg Hydrox/Simethicone (Maalox Plus 30 Ml) 30 ml PO ONCE ONE Stop: 01/27/18 09:37 Last Admin: 01/27/18 10:06 Dose: 30 ml Ketorolac Tromethamine (Toradol) 15 mg IM STAT STA Stop: 01/27/18 08:21 Last Admin: 01/27/18 08:55 Dose: 15 mg MAR Pain Assessment Document 01/27/18 08:55 LM (Rec: 01/27/18 08:55 [facility] [id number]) Pain Reassessment Is this a pain reassessment? No Sleep Is patient sleeping during reassessment? No Presence of Pain Presence of Pain Yes Pain Scale Used Pain Scale Used Numeric Location Upper or Lower Lower Pain Location Body Site Back Description Description Constant Intensity of Pain at present 5 IM Administration Charges Document 01/27/18 08:55 [facility] (Rec: 01/27/18 08:55 [facility] [id number]) Charges for Administration # of IM Administrations 1 Pantoprazole Sodium (Protonix Ec Tab) 20 mg PO ONCE ONE Stop: 01/27/18 09:37 Last Admin: 01/27/18 10:06 Dose: 20 mg Disposition/Present on Arrival - Present on Arrival Any Indicators Present on Arrival: No History of DVT/PE: No History of Uncontrolled Diabetes: No Urinary Catheter: No History of Decub. Ulcer: No History Surgical Site Infection Following: None - Disposition Have Diagnosis and Disposition been Completed?: Yes Diagnosis: Lumbar strain Disposition: HOME/ ROUTINE Disposition Time: 10:36 Patient Plan: Discharge Condition: GOOD Discharge Instructions (ExitCare): Low Back Pain (DC), Lumbar Muscle Strain ( DC) Additional Instructions: Please follow up with your primary doctor, Dr. Amezcua for further management. We hope your pain improves. Prescriptions: Tramadol HCl [Ultram] 50 mg PO QID #20 tablet Forms: [facility] (Macedonian), WORK NOTE
[2018-01-27] MEDS: Alum-Mag Hydrox-Simethicone Susp (30 mL) PO ONE (10:06)
[2018-01-27] MEDS: Pantoprazole 20 mg EC Tab PO ONE (10:06)
[2018-01-27 10:38] VITALS: BP 110/78; PULSE 79; O2SAT 97
--- NOTE | 2018-01-27 10:54 | RAD ---
Date of service: 01/27/2018 PROCEDURE: Radiographs of the Lumbar Spine. HISTORY: Low Back Pain COMPARISON: No prior. FINDINGS: BONES: Normal alignment. No listhesis. No fracture. Status post bilateral posterior-lateral hardware an osseous fusion L4-L5 and S1 the pedicle screws and interpedicle rods appear intact. L5 laminectomy radiolucencies suggested. At the thoraco lumbar junction degenerative type anterior wedging with blending spondylosis noted. DISC SPACES: L4-5 and L5-S1 interbody disc spacers present. Disc space is narrowed at these 2 levels change not apparent OTHER FINDINGS: Atherosclerotic vascular calcifications present. . IMPRESSION: No interval fracture or subluxation or hardware (a screw and oralia) failure. Interbody disc spacers with shallow disc spaces are noted -chronicity unknown. No comparisons available here. Background thoraco lumbar spondylosis and degenerative type appearing anterior vertebral body wedging.
== END 2018-01-27 10:58 | disposition home or self-care (01) ==
LOC: ED 07:17
DX: S39.012A Strain of muscle, fascia and tendon of lower back, initial encounter (principal); X58.XXXA Exposure to other specified factors, initial encounter; Y92.9 Unspecified place or not applicable
CPT/HCPCS: 72100; 80053; 85025; 96372; 99283; J1885

== ENCOUNTER 2018-11-18 11:52 | Emergency (ER) | payer OTHER ==
[2018-11-18 11:57] VITALS: TEMP 98.1
--- NOTE | 2018-11-18 12:30 | ED PDOC ---
Arrival/HPI - General Time Seen by Provider: 11/18/18 12:24 Historian: Patient - History of Present Illness Narrative History of Present Illness (Text): 11/18/18 12:25 47 y/o male, pmh including dm2, nkda, psychiatric history of depression, biba for for psychiatric evaluation. Pt. stated that he feels stress out, told his superior that "he feels like dying." the Employer is concerned so they send to the ER. Pt. stated that he has no homicidal or suicidal ideation, no auditory or visual hallucination, no rash, no numbness or tingling, no other medical or psychological complaints. Past Medical History - Provider Review Nursing Documentation Reviewed: Yes - Infectious Disease Hx of Infectious Diseases: None - Cardiac Hx Cardiac Disorders: Yes Hx Hypertension: Yes (NO LONGERX 1 YEAR) - Pulmonary Hx Respiratory Disorders: Yes Hx Bronchitis: Yes - Neurological Hx Neurological Disorder: Yes Hx Dizziness: Yes Hx Syncope: Yes Other/Comment: Hx Migraine - HEENT Hx HEENT Disorder: Yes Other/Comment: wear eyeglasses at all times - Renal Hx Renal Disorder: No - Endocrine/Metabolic Hx Endocrine Disorders: Yes Hx Diabetes Mellitus Type 2: Yes - Hematological/Oncological Hx Blood Disorders: No - Integumentary Hx Dermatological Disorder: Yes Other/Comment: LUQ abdominal abscess - S/P I&D -- + MRSA 2 YEARS AGO - Musculoskeletal/Rheumatological Hx Falls: No - Gastrointestinal Hx Gastrointestinal Disorders: Yes Other/Comment: Hx acid reflux (resolved as per pt. ) - Genitourinary/Gynecological Hx Genitourinary Disorders: No - Psychiatric Hx Substance Use: No - Surgical History Hx Musculoskeletal Surgery: Yes (LUMBAR FUSION) Other/Comment: JULIETA - Anesthesia Hx Anesthesia: Yes Hx Anesthesia Reactions: No Hx Malignant Hyperthermia: No Family/Social History - Physician Review Nursing Documentation Reviewed: Yes Family/Social History: Unknown Family HX Smoking Status: Current Some Days Smoker Hx Alcohol Use: Yes (on occasion) Hx Substance Use: No Allergies/Home Meds Allergies/Adverse Reactions: Allergies shellfish derived Allergy (Intermediate, Verified 11/18/18 12:56) RASH Home Medications: Home Meds Medication Instructions Recorded Confirmed Simvastatin 10 mg PO DAILY 06/02/18 11/18/18 Review of Systems - Review of Systems Constitutional: absent: Fatigue, Fevers Eyes: absent: Vision Changes ENT: absent: Hearing Changes Respiratory: absent: SOB, Cough Cardiovascular: absent: Chest Pain Gastrointestinal: absent: Abdominal Pain, Diarrhea, Nausea, Vomiting Genitourinary Male: absent: Dysuria Musculoskeletal: absent: Arthralgias, Back Pain Skin: absent: Rash, Pruritis Neurological: absent: Headache, Dizziness Hemo/Lymphatic: absent: Adenopathy, Easy Bleeding, Easy Bruising Psychiatric: absent: Anxiety, Depression, Suicidal Ideation Physical Exam Vital Signs Reviewed: Yes Vital Signs Temp Pulse Resp BP Pulse Ox 11/18/18 11:56 98.1 F 96 H 18 139/71 98 Temperature: Afebrile Blood Pressure: Normal Pulse: Regular Respiratory Rate: Normal Appearance: Positive for: Well-Appearing, Non-Toxic, Comfortable Pain Distress: None Mental Status: Positive for: Alert and Oriented X 3 - Systems Exam Head: Present: Atraumatic, Normocephalic Pupils: Present: PERRL Extroacular Muscles: Present: EOMI Conjunctiva: Present: Normal Mouth: Present: Moist Mucous Membranes Neck: Present: Normal Range of Motion Respiratory/Chest: Present: Clear to Auscultation, Good Air Exchange. No: Respiratory Distress, Accessory Muscle Use Cardiovascular: Present: Regular Rate and Rhythm, Normal S1, S2. No: Murmurs Abdomen: No: Tenderness, Distention, Peritoneal Signs Back: Present: Normal Inspection Upper Extremity: Present: Normal Inspection. No: Cyanosis, Edema Lower Extremity: Present: Normal Inspection. No: Edema Neurological: Present: GCS=15, CN II-XII Intact, Speech Normal Skin: Present: Warm, Dry, Normal Color. No: Rashes Psychiatric: Present: Alert, Oriented x 3, Normal Insight, Normal Concentration. No: Depressed Mood, Suicidal Ideation, Homicidal Ideation Medical Decision Making ED Course and Treatment: 11/18/18 12:30 -labs -ekg -[facility] paged and notified -Observe and reassess 11/18/18 14:25 -EKG: NSR @ 84 BPM, no ST elevation or depression, no T wave inversion, incomplete RBBB -Labs are non significant except wbc 13.2 (afrebrile, likely stress induced) -Alcohol within normal limit -Pt. is medically clear and stable for psychiatric evaluation. -Pt. evaluated by [facility] [place] which spoke to psychiatrist, discussed about the case and the patient is clear from psychiatric point of view. -Discharge home with education on follow up with your own pmd and psychiatric within 2 days, return to the ER for any new or worsening signs or symptoms. - PA / INSTRUMENTATION SUPERVISOR / Resident Statement MD/DO has reviewed & agrees with the documentation as recorded. Disposition/Present on Arrival - Present on Arrival Any Indicators Present on Arrival: No History of DVT/PE: No History of Uncontrolled Diabetes: No Urinary Catheter: No History of Decub. Ulcer: No History Surgical Site Infection Following: None - Disposition Have Diagnosis and Disposition been Completed?: Yes Diagnosis: Depression Disposition: HOME/ ROUTINE Disposition Time: 12:31 Patient Plan: Discharge Condition: GOOD Additional Instructions: -Discharge home with education on follow up with your own pmd and psychiatric within 2 days, return to the ER for any new or worsening signs or symptoms. Referrals: [facility] [place] - Follow up with [facility] [Outside] - Follow up with primary Forms: WORK NOTE
[2018-11-18 12:32] VITALS: BMI 35.4
[2018-11-18 13:35] LABS: BASO # 0.04 K/mm3 (0.0-2.0); BASO % 0.3 % (0.0-3.0); EOS # 0.2 (0.0-0.7); EOS % 1.2 % (1.5-5.0); HEMOGLOBIN 17.5 g/dL (14.0-18.0); LYMPH # 3.3 (1.2-3.4); LYMPH % 24.8 % (22.0-35.0); MEAN CORPUSCULAR HGB CONC 36.1 g/dl (31.0-37.0); MEAN PLATELET VOLUME 9.5 fl (7.0-11.0); MONO # 0.7 (0.1-0.6); MONO % 5.5 % (1.0-6.0); RBC 5.84 10^6/uL (3.5-6.1); RED CELL DISTRIBUTION WIDTH 13.8 % (11.5-14.5); WHITE BLOOD COUNT 13.2 10^3/uL (4.5-11.0)
[2018-11-18 13:39] LABS: ALB/GLOB RATIO 1.2 (1.1-1.8); ALBUMIN 4.3 g/dL (3.0-4.8); ALT/SGPT 27 U/L (7-56); AST/SGOT 19 U/L (17-59); BLOOD UREA NITROGEN 8 mg/dL (7-21); CALCIUM 9.5 mg/dL (8.4-10.5); GFR NON-AFRICAN AMERICAN > 60
[2018-11-18 13:40] LABS: ACETAMINOPHEN < 10.0 ug/ml (10.0-20.0); SALICYLATE < 1 mg/dL (2.0-20.0)
[2018-11-18 15:04] VITALS: BP 135/69; PULSE 90; RESP 16; O2SAT 99
--- NOTE | 2018-11-18 19:31 | CARD ---
APPROVED REPORT Date of service: 11/18/2018 EKG Measurement Heart [id number] <Conclusion> Normal sinus rhythm with sinus arrhythmia Incomplete right bundle branch block Borderline ECG
== END 2018-11-18 15:03 | disposition home or self-care (01) ==
LOC: ED 11:52
DX: F32.9 Major depressive disorder, single episode, unspecified (principal); E11.9 Type 2 diabetes mellitus without complications; I10 Essential (primary) hypertension